=== PATIENT | female | born 2005 | race Caucasian/White ===

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

== ENCOUNTER 2024-12-16 06:07 | Inpatient (IN) ==
[2024-12-16] MEDS ORDERED: REGLAN INJ 10 MG VIAL IVP PRN (06:45)
[2024-12-16] MEDS ORDERED: NUBAIN INJ 20 MG AMP IVP PRN (06:45)
[2024-12-16] MEDS: D5 1/2 NS 1,000 ML 1,000 ML IV SCH (06:46)
[2024-12-16] MEDS: AMPICILLIN VIAL 2 GRAM 2 G in NS 100 ML IV + SPIKE MINIBAG* 100 ML IV SCH (07:15)
--- NOTE | 2024-12-16 07:15 | DR.OB ---
OB QUICK NOTE Assessment/Plan (1) Encounter for supervision of normal first : Assessment/Plan: L&D 12/16/14 at 7:10am S-No complaint. O-Afebrile,VSS [id number]=145 with good LTV, +accel, no decel. CTX=q 1 1/2 min. but mild by palpation CVX=2cm/50%/-1/VTX AROM with clear fluid noted. IUPC and FSE placed. 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
[2024-12-16] MEDS: OXYTOCIN 20 UNIT/1,000 ML-NS 20 UNIT/1,000 ML PLAST..BAG IV PRN (07:20)
[2024-12-16] MEDS: LR 1,000 ML IV 1,000 ML IV ONE ×2 (08:10→09:36)
[2024-12-16] MEDS: BETADINE SOLN ONE (08:32)
[2024-12-16] MEDS: NAROPIN EPIDURAL 0.2% 100 ML ONE (09:02)
[2024-12-16] MEDS: FENTANYL VIAL INJ 100 mcg ONE (09:02)
[2024-12-16] MEDS: AMPICILLIN VIAL 2 GRAM ONE (09:51)
[2024-12-16] MEDS: MAG-OX TAB PO SCH (10:09)
[2024-12-16] MEDS: K-DUR TAB 20 MEQ PO SCH (10:10)
[2024-12-16] MEDS: AMPICILLIN VIAL 2 GRAM 2 G in NS 100 ML IV 100 ML IV NR (10:33)
[2024-12-16] MEDS ORDERED: K-DUR TAB 20 MEQ PO ONE (11:00)
[2024-12-16] MEDS: AMPICILLIN VIAL 1 GRAM 1 G in NS 50 ML IV 50 ML IV SCH (11:08)
[2024-12-16] MEDS: MAG-OX TAB ONE (11:34)
[2024-12-16] MEDS: AMPICILLIN VIAL 1 GRAM ONE ×2 (12:40→15:37)
--- NOTE | 2024-12-16 13:08 | DR.OB ---
OB QUICK NOTE Assessment/Plan (1) Encounter for supervision of normal first : Assessment/Plan: L&D 12/16/24 at 12:15pm Pitocin=8mu/min. Ampicillin S-No compliant except pelvic pressure. s/p epidural. O-Afebrile,VSS [id number] with good LTV, +accel, no decel. CTX=q 1 1/2 min., about 45-55mmHg CVX=4cm/75%/-1/VTX A-IUP at 39 4/7 weeks for induction +GBS culture Rh- P-Cont. pitocin induction Cont. 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
[2024-12-16] MEDS: ZOFRAN INJ 4 MG VIAL IVP PRN (14:19)
[2024-12-16] MEDS: NS 100 ML IV 100 ML ONE (15:37)
[2024-12-16] MEDS ORDERED: MOTRIN TAB 800 MG PO PRN (18:06)
--- NOTE | 2024-12-16 18:06 | DR.OB ---
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 Mother and infant stable. Head delivered over intact perineum. No nuchal cord. Nose and mouth bulb suctioned. Body delivered over intact perineum. Cord clamped x 2 and cut. Infant handed to attendant. Cord sent for gases. Placenta delivered spontaneously / intact / 3 vessel cord. No CVX / vaginal / perineal tears noted. Viable female delivered by , VTX/OA, wt=7'6" and 8/9, stable to NBN. Mother stable to RR. QWV=111dm. 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
[2024-12-16] MEDS: PITOCIN IVP ONE (18:24)
[2024-12-16] MEDS ORDERED: MILK OF MAGNESIA PO PRN (18:33)
[2024-12-16] MEDS ORDERED: AMBIEN PO PRN (18:33)
[2024-12-16] MEDS ORDERED: DERMOPLAST PAIN RELIEF SPRAY TOP PRN (18:33)
[2024-12-16] MEDS: HYPERRHO S/D (or RHOGAM) IM PRN (22:45)
[2024-12-16] MEDS: ADACEL or BOOSTRIX TDaP VACCINE IM ONE (22:49)
[2024-12-16] MEDS: MOTRIN TAB 800 MG PO PRN (22:56)
[2024-12-17] MEDS: OXYTOCIN 20 UNIT/1,000 ML-NS 20 UNIT/1,000 ML PLAST..BAG IV SCH (05:13)
[2024-12-17] MEDS ORDERED: CONSULT PHARMACY - POTASSIUM & MAGNESIUM XX SCH (07:00)
[2024-12-17] MEDS: VISBIOME PROBIOTIC CAP 112.5 B or equivalent PO SCH (08:38)
[2024-12-17] MEDS: PRENATAL PLUS PO SCH (08:38)
[2024-12-17] MEDS: FERROUS GLUCONATE PO SCH (18:12)
[2024-12-17] MEDS: NS 100 ML IV 100 ML ONE ×2 (20:43)
[2024-12-17] MEDS: ZOFRAN INJ 4 MG VIAL ONE (20:43)
[2024-12-17] MEDS: PEPCID 20 MG VIAL ONE (20:44)
[2024-12-17] MEDS: NAROPIN EPIDURAL 0.2% 100 ML ONE (20:44)
[2024-12-17] MEDS: LIDOCAINE 2%-EPI 1:200,000 ONE ×2 (20:44)
[2024-12-17] MEDS: FENTANYL VIAL INJ 100 mcg ONE (20:44)
[2024-12-17] MEDS: CONSULT PHARMACY - POTASSIUM & MAGNESIUM XX SCH (20:45)
[2024-12-18 04:07] VITALS: RESP 18
[2024-12-18 12:13] VITALS: BP 139/85; PULSE 60; TEMP 97.3; O2SAT 100
== END 2024-12-18 12:14 | disposition home or self-care (01) | DRG 806 ==
LOC: LD 06:07 → MED/SURG 18:57
PROVIDERS: ADMIT Specialist; ATTEND Specialist
DX: Z14.1 Cystic fibrosis carrier; Z01.812 Encounter for preprocedural laboratory examination; B95.1 Streptococcus, group B, as the cause of diseases classified elsewhere; O36.0930 Maternal care for other rhesus isoimmunization, third trimester, not applicable or unspecified; Z37.0 Single live birth; O98.82 Other maternal infectious and parasitic diseases complicating childbirth; Z3A.39 39 weeks gestation of pregnancy; O26.893 Other specified pregnancy related conditions, third trimester